=== PATIENT | female | born 1985 | race Caucasian/White ===

== ENCOUNTER 2016-07-23 00:31 | Emergency (ER) | payer OTHER ==
[2016-07-23 01:20] LABS: UA SPECIFIC GRAVITY >=1.030 (1.005-1.035); microscopic required? YES; urine erythrocyte TRACE (NEGATIVE)
[2016-07-23 01:25] LABS: BASOPHIL % 1.6 % (0-2); PLATELET COUNT 303 x10^3mcL (130-400); RED CELL DISTRIBUTION WIDTH 13.8 % (11.5-14.5)
[2016-07-23 01:29] LABS: CALCIUM 8.8 mg/dL (8.5-10.1); CARBON DIOXIDE 25.7 mmol/L (21-32); CHLORIDE SERUM 108 mmol/L (98-107); CREATININE SERUM 0.7 mg/dL (0.6-1.0); GFR1 > 60 mL/min; GLUCOSE SERUM 139 mg/dL (74-106); SODIUM SERUM 142 mmol/L (136-145)
[2016-07-23 01:39] LABS: ALBUMIN 3.5 g/dL (3.4-5.0); ALKALINE PHOSPHATASE 74 U/L (46-116); ALT/SGPT 17 U/L (14-59); AMYLASE 62 U/L (25-115); AST/SGOT 14 U/L (15-37); BILIRUBIN TOTAL 0.3 mg/dL (0.20-1.00); LIPASE 133 IU/L (73-393)
[2016-07-23 03:44] VITALS: BP 98/64
== END 2016-07-23 03:44 | disposition home or self-care (01) ==
LOC: ED 00:31
PROVIDERS: Emergency Medicine
DX: K80.20 Calculus of gallbladder without cholecystitis without obstruction (principal)
CPT/HCPCS: J0295; J1885; J2405; J3490; J7030; Q0092

== ENCOUNTER 2016-09-08 05:05 | Inpatient (IN) | payer OTHER ==
[~2016-09-08] VITALS: Ht 160 cm; Wt 90.0 kg
[2016-09-08 05:47] LABS: BASOPHIL % 0.4 % (0-2); PLATELET COUNT 277 x10^3mcL (130-400); RED CELL DISTRIBUTION WIDTH 13.2 % (11.5-14.5)
[2016-09-08 06:00] LABS: CALCIUM 8.9 mg/dL (8.5-10.1); CARBON DIOXIDE 20.5 mmol/L (21-32); CHLORIDE SERUM 105 mmol/L (98-107); CREATININE SERUM 0.6 mg/dL (0.6-1.0); GFR1 > 60 mL/min; GLUCOSE SERUM 111 mg/dL (74-106); POTASSIUM SERUM 3.9 mmol/L (3.5-5.1); SODIUM SERUM 137 mmol/L (136-145)
[2016-09-08 06:04] LABS: ALBUMIN 3.4 g/dL (3.4-5.0); ALKALINE PHOSPHATASE 69 U/L (46-116); ALT/SGPT 19 U/L (14-59); AST/SGOT 16 U/L (15-37); BILIRUBIN TOTAL 0.26 mg/dL (0.20-1.00); LIPASE 142 IU/L (73-393); TOTAL PROTEIN, SERUM 7.8 g/dL (6.4-8.2)
[2016-09-08 08:39] LABS: MAGNESIUM 1.8 mg/dL (1.8-2.4); PHOSPHOROUS 3.7 mg/dL (2.5-4.9)
[2016-09-08 08:42] LABS: T3 TOTAL 1.61 ng/mL
[2016-09-08 08:43] LABS: CHOLESTEROL/HDL RATIO 2.2
[2016-09-08 08:46] LABS: FREE T4 1.34 ng/dL (0.76-1.46); T4(THYROXINE) 10.8 ug/dL (4.7-13.3)
[2016-09-08 08:59] VITALS: BP 113/77
[2016-09-08 10:40] VITALS: BP 113/77
[2016-09-08 12:55] LABS: microscopic required? YES; urine erythrocyte TRACE (NEGATIVE)
[2016-09-08 17:35] VITALS: BP 133/80
[2016-09-08 21:06] VITALS: BP 122/73
[2016-09-09 05:19] VITALS: BP 108/70
[2016-09-09 07:05] LABS: BASOPHIL % 0.3 % (0-2); PLATELET COUNT 246 x10^3mcL (130-400); RED CELL DISTRIBUTION WIDTH 13.7 % (11.5-14.5)
[2016-09-09 07:29] LABS: CALCIUM 7.9 mg/dL (8.5-10.1); CARBON DIOXIDE 20.4 mmol/L (21-32); CHLORIDE SERUM 107 mmol/L (98-107); CREATININE SERUM 0.5 mg/dL (0.6-1.0); GFR1 > 60 mL/min; GLUCOSE SERUM 93 mg/dL (74-106); MAGNESIUM 1.7 mg/dL (1.8-2.4); PHOSPHOROUS 3.3 mg/dL (2.5-4.9); POTASSIUM SERUM 3.7 mmol/L (3.5-5.1); SODIUM SERUM 137 mmol/L (136-145)
[2016-09-09 08:29] LABS: BILIRUBIN DIRECT 0.13 mg/dL (0.0-0.2); BILIRUBIN TOTAL 0.41 mg/dL (0.20-1.00); TOTAL PROTEIN, SERUM 6.6 g/dL (6.4-8.2)
[2016-09-09 08:30] LABS: ALBUMIN 2.7 g/dL (3.4-5.0)
[2016-09-09 09:12] VITALS: BP 109/73
[2016-09-09 12:49] VITALS: BP 98/62
[2016-09-09 17:02] VITALS: BP 112/70
[2016-09-09 21:26] VITALS: BP 125/72
[2016-09-10 06:25] VITALS: BP 124/82
[2016-09-10 08:27] VITALS: BP 119/69
[2016-09-10] MEDS ORDERED: NORCO 10-325 T1 EACH PO (10:54)
[2016-09-10] MEDS ORDERED: COLACE100 MG PO (10:54)
[2016-09-10] MEDS ORDERED: BICARSIM80 M1 PO (10:55)
[2016-09-10 12:49] VITALS: BP 119/69
== END 2016-09-10 14:26 | disposition home or self-care (01) | DRG 263 ==
LOC: ED 05:05 → DU 07:17 → MU 07:17 → DU 08:34 → MU 09-09 10:04
PROVIDERS: Emergency Medicine; Surgery; ADMIT Family Medicine
PROC: 0FT44ZZ Resection of Gallbladder, Percutaneous Endoscopic Approach (ICD-10-PCS; principal; 2016-09-08 14:30)
DX: K80.00 Calculus of gallbladder with acute cholecystitis without obstruction (principal); E43 Unspecified severe protein-calorie malnutrition; D64.9 Anemia, unspecified; E66.9 Obesity, unspecified; Z68.35 Body mass index [BMI] 35.0-35.9, adult
CPT/HCPCS: 83880; 84439; 94150; C9113; J0330; J0500; J0696; J1170; J1885; J2175; J2250; J2405; J2704; J2710; J3010; J3490; J7030; J7120; Q0092